=== PATIENT | male | born 1970 | race Caucasian/White ===

== ENCOUNTER 2016-09-19 10:27 | Emergency (ER) | payer SELFPAY ==
[2016-09-19 10:41] VITALS: BP 129/76
--- NOTE | 2016-09-19 10:41 | ER Document Report ---
ED Medical Screen (RME) - General Stated Complaint: TOOTH PAIN Notes: 46 yo male c/o pain to upper front tooth x 4 days. + swelling to gum. no fever. TRAVEL OUTSIDE OF THE [place] IN LAST 30 DAYS: No - Related Data Allergies/Adverse Reactions: hydrocodone [Hydrocodone] Allergy (Unknown, Verified 02/09/13 11:09) Past Medical History - Past Medical History Cardiac Medical History: Reports: Hx Hypertension - Immunizations Immunizations up to date: Yes Hx Diphtheria, Pertussis, Tetanus Vaccination: Yes
--- NOTE | 2016-09-19 11:26 | ER Document Report ---
HPI - HPI Patient complains to provider of: tooth pain and decay Onset: Other - 1 week Onset/Duration: Gradual Pain Level: 4 Context: 46-year-old male with a history of a chipped left front central incisor has started getting darker black with extreme tooth pain. No facial swelling or fever. Associated Symptoms: None Exacerbated by: Denies Relieved by: Denies Similar symptoms previously: No Recently seen / treated by doctor: No - ROS ROS below otherwise negative: Yes Systems Reviewed and Negative: Yes All other systems reviewed and negative - DERM Skin Color: Normal, [place], Pale Past Medical History - General Information source: Patient - Social History Smoking Status: Current Every Day Smoker Frequency of alcohol use: Social Drug Abuse: None Lives with: Family Family History: Reviewed & Not Pertinent Patient has suicidal ideation: No Patient has homicidal ideation: No - Past Medical History Cardiac Medical History: Reports: Hx Hypertension Renal/ Medical History: Denies: Hx Peritoneal Dialysis Surgical Hx: Negative - Immunizations Immunizations up to date: Yes Hx Diphtheria, Pertussis, Tetanus Vaccination: Yes Vertical Provider Document - CONSTITUTIONAL Agree With Documented VS: Yes Exam Limitations: No Limitations - INFECTION CONTROL TRAVEL OUTSIDE OF THE [place] IN LAST 30 DAYS: No - HEENT HEENT: Atraumatic, Normocephalic Notes: Left front upper central incisor with decay and gingival retraction and inflammation, no abscess - NECK Neck: Supple. negative: Lymphadenopathy-Left, Lymphadenopathy-Right - RESPIRATORY O2 Sat by Pulse Oximetry: 96 - NEURO Level of Consciousness: Awake, Alert - DERM Integumentary: Warm, Dry Course - Vital Signs Vital signs: Temp Pulse Resp BP Pulse Ox 98.9 F 65 16 129/76 H 96 09/19/16 10:39 09/19/16 10:39 09/19/16 10:39 09/19/16 10:39 09/19/16 10:39 Discharge - Discharge Clinical Impression: dental pain and decay Condition: Good Disposition: HOME, SELF-CARE Instructions: Penicillin V K ([facility]), Toothache ([facility]), Ultram ([facility]), Anti- Inflammatory Medication ([facility]), Dentist Additional Instructions: see the dentist To the emergency room if worse Please complete the patient satisfaction survey if you get one, and return it.. If you do not receive a survey, then you can go to the [facility] website, [email or web address] and place your comments about your very good care. Thank you very much. It was a pleasure being your medical provider today. Prescriptions: Ibuprofen [Motrin 800 mg Tablet] 800 mg PO Q8HP PRN #30 tablet PRN Reason: Penicillin V Potassium [Penicillin Vk 500 mg Tablet] 500 mg PO QID #40 tablet Tramadol HCl [Ultram 50 mg Tablet] 50 mg PO ASDIR PRN #20 tablet PRN Reason:
== END 2016-09-19 11:30 | disposition home or self-care (01) ==
LOC: ER 10:27
DX: K02.9 Dental caries, unspecified (principal); K05.10 Chronic gingivitis, plaque induced; K08.89 Other specified disorders of teeth and supporting structures; F17.200 Nicotine dependence, unspecified, uncomplicated; I10 Essential (primary) hypertension
CPT/HCPCS: 99282